=== PATIENT | female | born 1960 | race Caucasian/White ===

== ENCOUNTER 2023-07-17 17:49 | Emergency (ER) | payer BC, SELFPAY ==
[2023-07-17 18:03] VITALS: BP 177/103
[2023-07-17 18:26] LABS: % Basophils 0.3 % (0-2); % Eosinophils 2.4 % (0-6); % Immature Granulocytes 0.3 % (0-0.5); % Lymphocytes 37.4 % (20.5-51.1); % Monocytes 10.8 % (1.7-9.3); % Neutrophils 48.8 % (42.2-75.2); Absolute Eosinophils 0.1 10^3/uL (0-0.7); Absolute Lymphocytes 2.1 10^3/uL (1.2-3.4); Absolute Monocytes 0.6 10^3/uL (0.1-0.6); Absolute Neutrophils 2.8 10^3/uL (1.4-6.5); Hematocrit 39.8 % (37.0-47.0); Mean Corp Hgb Conc. 32.7 g/dL (33.0-37.0); Mean Corpuscular Hgb 29.8 pg (27.0-31.0); Mean Corpuscular Volume 91.3 fL (81.0-99.0); Mean Platelet Volume 10.1 fL (7.4-10.4); Nucleated Red Blood Cells % 0 %; Platelet Count 231 10^3/uL (130-400); Red Blood Cell Count 4.36 10^6/uL (4.20-5.40); Red Cell Dist. Width 12.8 % (11.5-14.5); White Blood Cell Count 5.7 10^3/uL (4.8-10.8)
[2023-07-17 18:45] LABS: ALT (SGPT) 29 U/L (0-35); AST (SGOT) 23 U/L (14-36); Albumin 3.8 g/dl (3.5-5.0); Alkaline Phosphatase 114 U/L (38-126); Blood Urea Nitrogen 13 mg/dl (7-17); Calcium 10.5 mg/dl (8.4-10.2); Carbon Dioxide 27 mmol/L (22-30); Chloride 107 mmol/L (98-107); Glucose 145 mg/dl (70-99); Potassium 4.4 mmol/L (3.5-5.1); Sodium 136 mmol/L (135-145); Total Bilirubin 0.4 mg/dl (0.2-1.3); Total Protein 6.8 g/dl (6.3-8.2); eGFR > 60.00
[2023-07-17 21:00] VITALS: BP 149/88
--- NOTE | 2023-07-17 21:17 | ED.GENMED ---
History of Present Illness
General
Chief Complaint: Abnormal Lab Value
Time Seen by Provider: 07/17/23 19:56
Travel History
Have you had any contact with someone who has COVID-19?: No
Do you have any symptoms of coronavirus? Fever > 100 degrees, chills, cough, shortness of breath, sore throat, loss of taste or smell, muscle aches, or headache?: No
History of Present Illness
History of Present Illness:
63-year-old female presents due to general fatigue. She went to urgent care prior to arrival where she was noted to have frequent PVCs on cardiac monitoring, subsequent labs showed hyperglycemia and hypercalcemia though she was sent to the
emergency department. She reports URI symptoms with sore throat and general malaise but denies any chest pain, palpitations, or shortness of breath.
Past History
Past History
ED Past Medical History: Seizures (activity) and Psychiatric (Anxiety, reports history of bipolar disorder.)
ED Past Surgical History: None
Social History
Tobacco: Non-smoker
Alcohol: Occasional
Personal:
Living: with family
Employment: Not employed
Family History
Family History: Negative CAD or Sudden
Review of Systems
Review of Systems
Allergies reviewed?: Yes
All Other Systems: ROS reviewed and negative except as documented in HPI and ROS
Phy Exam
Physical Exam
Physical Exam:
GEN: Well appearing, NAD, WDWN
HEENT: Oral mucosa moist, no scleral icterus
Cardiac: Regular rate and rhythm, no murmurs
Lung: No respiratory distress, no tachypnea, lungs clear to auscultation
MSK: No gross deformity or injuries
Skin: Good color, no pallor or jaundice, no rashes
Neuro: AO x3, moves all extremities freely
Psych: Calm, cooperative
Course
Orders/Labs/Results
Orders:
Orders
07/17/23 18:06
Electrocardiogram (*1) Urgent
Reason for Study: Chest Pain
07/17/23 18:07
EKG- Treatment ONCE
07/17/23 18:21
Complete Blood Count/With Diff Urgent
Comprehensive Metabolic Panel Urgent
Abnormal Lab Results
07/17/23
18:21
MCHC 32.7 L g/dL
(33.0-37.0)
Monocytes % 10.8 H %
(1.7-9.3)
Creatinine 0.5 L mg/dL
(0.6-1.0)
Glucose 145 H mg/dl
(70-99)
Calcium 10.5 H mg/dl
(8.4-10.2)
07/17/23 18:21
07/17/23 18:21
Vital Signs
Initial and Last Documented VS:
Initial Vital Signs
Temp Pulse Resp BP Pulse Ox
98.2 F 80 16 177/103 98
07/17/23 18:03 07/17/23 18:03 07/17/23 18:03 07/17/23 18:03 07/17/23 18:03
Last Documented Vital Signs
Temp Pulse Resp BP Pulse Ox
98.2 F 80 16 177/103 98
07/17/23 18:03 07/17/23 18:03 07/17/23 18:03 07/17/23 18:03 07/17/23 18:03
MDM/Problems Addressed
MDM/Problems Addressed:
63-year-old female presents due to lab abnormality seen in urgent care. She is mildly hyperglycemic and hypercalcemic however these are likely not significant. She does note increased usage of Tums recently which may be driving her hypercalcemia.
She had viral panels and strep test done in urgent care that were negative. Regards to her PVCs these are typically asymptomatic and likely not related to her symptoms. Patient monitored on telemetry for approximately 1 hour with no evidence for
cardiac dysrhythmia. Recommend outpatient primary care follow-up regarding her lab abnormalities
Comment
Comment:
EKG independently interpreted by me shows normal sinus rhythm with frequent PVCs, no ST changes concerning for ischemia
*Critical Care Note
Total Time (30-74mins, 75-104mins- exclusive of procedures): Not Applicable
ED Attending Note
-
Portions of this chart may have been created with voice recognition software.� Occasional wrong word or��sound alike� substitutions may have occurred due to the inherent limitations of voice recognition software.
Discharge Plan
Departure
Patient Disposition: Home (Routine Discharge)
Date of Disposition: 07/17/23
Time of Disposition: 21:18
Patient with high blood pressure during this ER visit?: No
Discharge Problem:
Asymptomatic PVCs, Hypercalcemia, Hyperglycemia
Instructions: BLOOD PRESSURE
Prescriptions:
No Action
clonazepam 0.5 MG tablet
1 tab PO HS PRN (Reason: anxiety)
cholecalciferol (vitamin D3) 2,000 UNIT tablet
2,000 unit PO DAILY
Referrals:
Laurie Serrano, DO [Family Provider] -
Activity Restrictions/Additional Instructions:
Please have your calcium and sugar rechecked by her primary care physician. Limit your Tums intake to lower your calcium
Interventions
Interventions:
*ED COVID-19 Vaccine History Last Done: 07/17/23 18:03
Discharge Date and Time
Print Language: WELSH
== END 2023-07-17 21:44 | disposition home or self-care (01) ==
LOC: EMR 17:49
PROVIDERS: EMERGENCY PHYSICIAN Emergency Medicine; FAMILY PHYSICIAN Family Medicine
DX: I49.3 Ventricular premature depolarization (principal); E83.52 Hypercalcemia; R73.9 Hyperglycemia, unspecified
CPT/HCPCS: 99284; 80053; 85025; 93005

== ENCOUNTER 2023-09-09 22:13 | Emergency (ER) | payer BC, SELFPAY ==
[2023-09-09 22:13] VITALS: BMI 34.1
[2023-09-09 22:16] VITALS: BP 144/108
--- NOTE | 2023-09-09 23:45 | ED.GENMED ---
History of Present Illness
General
Chief Complaint: Cardiac Symptoms
Source: patient
Exam Limitations: none
Time Seen by Provider: 09/09/23 23:07
Travel History
Have you had any contact with someone who has COVID-19?: No
Do you have any symptoms of coronavirus? Fever > 100 degrees, chills, cough, shortness of breath, sore throat, loss of taste or smell, muscle aches, or headache?: No
History of Present Illness
History of Present Illness:
63-year-old female who presents with left-sided pain in her upper chest. The patient states that she has had this pain for about a month since she had a mammogram where she was squeezing relatively hard on that side. The patient admits that since
then she has been having this discomfort comes daily. She was seen in urgent care in the past and did have an ER visit for the same. Patient states today the pain just seems a little different as it did radiate down her left arm and did briefly
radiate toward her jaw. There is no pain now. She again presented to urgent care and was sent here for further evaluation. Patient denies shortness of breath. No hemoptysis. No leg swelling.
Past History
Past History
ED Past Medical History: Seizures (activity) and Psychiatric (Anxiety, reports history of bipolar disorder.)
ED Past Surgical History: None
Social History
Tobacco: Non-smoker
Alcohol: Occasional
Personal:
Living: with family
Employment: Not employed
Family History
Family History: Negative CAD or Sudden
Phy Exam
Physical Exam
Physical Exam:
CONSTITUTIONAL Patient alert and oriented to person, place and time. Well-appearing. Vital signs reviewed.
HEAD atraumatic, normocephalic.
EYES eyelids normal to inspection, Extraocular muscles intact, Conjunctiva normal, Sclera normal.
NECK normal range of motion, Trachea midline, no jugular venous distention.
RESPIRATORY CHEST No respiratory distress noted, Chest expansion equal, Bilateral breath sounds clear.
CARDIOVASCULAR regular rate and rhythm, Heart sounds normal.
ABDOMEN abdomen nontender, Bowel sounds normal. No distention.
BACK normal inspection, no obvious deformities
UPPER EXTREMITY range of motion normal, Motor strength normal, no cyanosis, no edema.
LOWER EXTREMITY range of motion normal, Motor strength normal, no cyanosis, no edema.
NEURO Speech normal, No focal motor deficits, [place] coma scale 15, Memory normal, Cranial Nerves intact to screening exam.
SKIN skin warm, dry, and normal in color.
PSYCHIATRIC patient oriented to person place and time, Normal affect.
Course
Orders/Labs/Results
Orders:
Orders
09/09/23 22:19
ECG [Electrocardiogram (*1)] Urgent
Reason for Study: Chest Pain
09/09/23 22:20
EKG- Treatment ONCE
09/09/23 23:30
Cardiac Monitoring- Treatment ONCE
IV Insert/Care/Rem.- Treatment PRN
CR Chest - 2 Views Urgent
Comment:
Reason For Exam: respiratory distress
O2 Therapy [RESP] Urgent
Titrate/Wean O2 to maintain O2 sat greater than (%): 93
Special Instructions: TO MAINTAIN CONTINUOUS O2 SATS >/= 93%
Pulse Ox/cont/shift [RESP] Urgent
Quantity: 1
Special Instructions: continuous pulse ox
09/09/23 23:38
Complete Blood Count/With Diff Urgent
Comprehensive Metabolic Panel Urgent
NT-proBNP Routine
Troponin I Urgent
Abnormal Lab Results
09/09/23
23:38
RBC 4.18 L 10^6/uL
(4.20-5.40)
Hct 36.5 L %
(37.0-47.0)
Creatinine 1.1 H mg/dL
(0.6-1.0)
Glucose 125 H mg/dl
(70-99)
Calcium 11.2 H mg/dl
(8.4-10.2)
09/09/23 23:38
09/09/23 23:38
Vital Signs
Initial and Last Documented VS:
Initial Vital Signs
Temp Pulse Resp BP Pulse Ox
98.3 F 81 18 144/108 99
09/09/23 22:16 09/09/23 22:16 09/09/23 22:16 09/09/23 22:16 09/09/23 22:16
Last Documented Vital Signs
Temp Pulse Resp BP Pulse Ox
98.3 F 74 14 151/87 94
09/09/23 22:16 09/10/23 00:45 09/10/23 00:45 09/10/23 00:10 09/10/23 00:45
MDM/Problems Addressed
MDM/Problems Addressed:
Chest pain
*Radiology
Radiology exam reviewed: all reviewed NAD by ED Provider
*Pulse Oximetry
Patient hypoxic: no
*EKG
Interpreted by ED Provider?: Yes
Interpretation: normal
Rate: normal
Rhythm: sinus
[place]: normal axis
Ischemia: no ischemia
*Time Buyer Interpretation
Rate: normal
Interpretation: normal
Rhythm: sinus and PVC's
*Critical Care Note
Total Time (30-74mins, 75-104mins- exclusive of procedures): Not Applicable
Data Reviewed
Review of Other/Old Records Reveals: Labs (Prior labs reviewed)
Source: patient
Further Testing Considered But Not Given:
Consider D-dimer but no clinical suspicion for DVT or PE
Patient Management
Escalation/DeEscalation of care consider admission/obs:
Pain x 1 month. EKG and troponin negative. Will refer to cardiology for outpatient follow-up. Patient appears well.
ED Attending Note
-
Portions of this chart may have been created with voice recognition software.� Occasional wrong word or��sound alike� substitutions may have occurred due to the inherent limitations of voice recognition software.
Discharge Plan
Departure
Patient Disposition: Home (Routine Discharge)
Date of Disposition: 09/10/23
Time of Disposition: 00:52
Patient with high blood pressure during this ER visit?: Yes
Discharge Problem:
Chest pain
Instructions: Chest Pain DCA Follow Up, BLOOD PRESSURE
Prescriptions:
No Action
clonazepam 0.5 MG tablet
1 tab PO HS PRN (Reason: anxiety)
cholecalciferol (vitamin D3) 2,000 UNIT tablet
2,000 unit PO DAILY
Referrals:
UNKNOWN - PT DOES,NOT KNOW [Unknown Provider] -
Activity Restrictions/Additional Instructions:
Please take 81 mg of aspirin daily. Please avoid strenuous or exertional activity until cleared by cardiology. Cardiology has been notified and a follow up appointment has been requested. Someone will call you on the next business day to schedule a
follow up appointment.
Interventions
Interventions:
*Risk Screen - Suicide Last Done: 09/09/23 22:16
*General Assessment Last Done: 09/09/23 22:16
*Neglect/Abuse Screening Last Done: 09/09/23 22:16
ED- Fall Risk Assessment Last Done: 09/09/23 23:20
*ED COVID-19 Vaccine History Last Done: 09/09/23 23:20
ED- Pulmonary Assessment Last Done: 09/09/23 23:20
ED- Cardiac Assessment Last Done: 09/09/23 23:20
Discharge Date and Time
Print Language: LATVIAN
[2023-09-09 23:47] LABS: % Basophils 0.5 % (0-2); % Eosinophils 2.7 % (0-6); % Immature Granulocytes 0.3 % (0-0.5); % Lymphocytes 40.2 % (20.5-51.1); % Monocytes 9.2 % (1.7-9.3); % Neutrophils 47.1 % (42.2-75.2); Absolute Eosinophils 0.2 10^3/uL (0-0.7); Absolute Lymphocytes 2.7 10^3/uL (1.2-3.4); Absolute Monocytes 0.6 10^3/uL (0.1-0.6); Absolute Neutrophils 3.1 10^3/uL (1.4-6.5); Hematocrit 36.5 % (37.0-47.0); Hemoglobin 12.6 g/dL (12.0-16.0); Mean Corp Hgb Conc. 34.5 g/dL (33.0-37.0); Mean Corpuscular Hgb 30.1 pg (27.0-31.0); Mean Corpuscular Volume 87.3 fL (81.0-99.0); Mean Platelet Volume 10.2 fL (7.4-10.4); Nucleated Red Blood Cells % 0 %; Platelet Count 222 10^3/uL (130-400); Red Blood Cell Count 4.18 10^6/uL (4.20-5.40); White Blood Cell Count 6.6 10^3/uL (4.8-10.8)
[2023-09-10 00:03] LABS: ALT (SGPT) 29 U/L (0-35); AST (SGOT) 20 U/L (14-36); Albumin 3.6 g/dl (3.5-5.0); Alkaline Phosphatase 105 U/L (38-126); Blood Urea Nitrogen 15 mg/dl (7-17); Calcium 11.2 mg/dl (8.4-10.2); Carbon Dioxide 28 mmol/L (22-30); Chloride 107 mmol/L (98-107); Estimated Creatinine Clearance 60 ml/min; Glucose 125 mg/dl (70-99); Potassium 3.8 mmol/L (3.5-5.1); Sodium 140 mmol/L (135-145); Total Bilirubin 0.2 mg/dl (0.2-1.3); Total Protein 6.3 g/dl (6.3-8.2); eGFR 56.11
[2023-09-10 00:10] VITALS: BP 151/87
[2023-09-10 00:13] LABS: NT-proBNP 57.5 pg/ml; Troponin I < 0.012 ng/ml
[2023-09-10 01:10] VITALS: BP 148/84
== END 2023-09-10 01:10 | disposition home or self-care (01) ==
LOC: EMR 22:13
PROVIDERS: EMERGENCY PHYSICIAN Emergency Medicine; FAMILY PHYSICIAN Family Medicine
DX: R07.89 Other chest pain (principal); I49.3 Ventricular premature depolarization; G40.909 Epilepsy, unspecified, not intractable, without status epilepticus; F41.9 Anxiety disorder, unspecified; F31.9 Bipolar disorder, unspecified
CPT/HCPCS: 99283; 71046; 80053; 83880; 84484; 85025

== ENCOUNTER 2024-06-23 05:58 | Emergency (ER) | payer BC, SELFPAY ==
[2024-06-23 06:00] VITALS: BP 189/94
[2024-06-23 06:53] VITALS: BP 179/96
--- NOTE | 2024-06-23 07:33 | ED.GENMED ---
History of Present Illness
General
Chief Complaint: Numbness
Time Seen by Provider: 06/23/24 07:10
History of Present Illness
History of Present Illness:
64-year-old female with no significant past medical history presents to the emergency department for evaluation of intermittent left facial paresthesia and sharp pain to the left forehead maxillary face, the symptoms have been ongoing nearly daily
basis for at least 2 weeks. She went to urgent care yesterday where she had CBC and CMP that were unremarkable as well as negative COVID and flu; Was advised to seek ED care for further workup. She denies any obvious provoking or palliating
factors. No associated vision changes, hearing loss, vertigo, chest pain, or extremity paresthesias.
Past History
Past History
ED Past Medical History: Seizures (activity) and Psychiatric (Anxiety, reports history of bipolar disorder.)
ED Past Surgical History: None
Social History
Tobacco: Non-smoker
Alcohol: Occasional
Personal:
Living: with family
Employment: Not employed
Family History
Family History: Negative CAD or Sudden
Review of Systems
Review of Systems
Allergies reviewed?: Yes
All Other Systems: ROS reviewed and negative except as documented in HPI and ROS
Phy Exam
Physical Exam
Physical Exam:
GEN: Well appearing, NAD, WDWN
HEENT: Oral mucosa moist, no scleral icterus, no nasal congestion
Cardiac: Regular rate And rhythm, no murmurs
Lung: No respiratory distress, no tachypnea
MSK: No gross deformity or injuries
Skin: Good color, no pallor or jaundice, no rashes
Neuro: AO x3; CN II-XII grossly intact. BUE strength 5/5 in all [place], sensation intact and symmetric. BLE strength 5/5 in all hernd[place], sensation intact and symmetric
Psych: Calm, cooperative
Course
Vital Signs
Initial and Last Documented VS:
Initial Vital Signs
Temp Pulse Resp BP Pulse Ox
98.2 F 75 16 189/94 99
06/23/24 06:00 06/23/24 06:00 06/23/24 06:00 06/23/24 06:00 06/23/24 06:00
Last Documented Vital Signs
Temp Pulse Resp BP Pulse Ox
98.2 F 75 16 179/96 99
06/23/24 06:00 06/23/24 06:00 06/23/24 06:00 06/23/24 06:53 06/23/24 06:00
MDM/Problems Addressed
MDM/Problems Addressed:
Patient's neurologic exam is unremarkable. Her episodic sharp pain in the left side of the face is most closely consistent trigeminal neuralgia. Do not feel at this time that a CT of the head will provide any clinical benefit. Discussed potential
benefits of carbamazepine however the patient is little apprehensive given that the symptoms are not profoundly affecting her quality of life at this time. Will prescribe the medication and have her follow-up with her primary care physician to
discuss next steps
*Critical Care Note
Total Time (30-74mins, 75-104mins- exclusive of procedures): Not Applicable
ED Attending Note
-
Portions of this chart may have been created with voice recognition software.� Occasional wrong word or��sound alike� substitutions may have occurred due to the inherent limitations of voice recognition software.
Discharge Plan
Departure
Patient Disposition: Home (Routine Discharge)
Date of Disposition: 06/23/24
Time of Disposition: 07:33
Patient with high blood pressure during this ER visit?: Yes
Discharge Problem:
Facial pain
Instructions: Trigeminal neuralgia
Prescriptions:
New
carbamazepine 200 mg tablet
200 mg PO TID Qty: 90 0RF
Activity Restrictions/Additional Instructions:
As we discussed, your symptoms most closely parallel trigeminal neuralgia. We have prescribed you carbamazepine, which is typically very effective for this condition. However, if the symptoms are not impeding life, do not feel the need to start this
immediately. You may also discuss options with your primary doctor
If you begin the medication and your symptoms do not improve or worsen, please discuss a brain MRI with your primary doctor
Interventions
Interventions:
*Risk Screen - Suicide Last Done: 06/23/24 06:00
*General Assessment Last Done: 06/23/24 06:00
*Neglect/Abuse Screening Last Done: 06/23/24 06:00
*ED- Fall Risk Assessment Last Done: 06/23/24 06:53
*ED COVID-19 Vaccine History Last Done: 06/23/24 06:53
*Nursing Disposition Last Done: 06/23/24 08:00
ED- Neurological Assessment Last Done: 06/23/24 06:53
Discharge Date and Time
Discharge Date/Time: 06/23/24 08:01
Print Language: CITIZEN [place]
== END 2024-06-23 08:01 | disposition home or self-care (01) ==
LOC: EMR 05:58
PROVIDERS: EMERGENCY PHYSICIAN Emergency Medicine; FAMILY PHYSICIAN Family Medicine
DX: G50.0 Trigeminal neuralgia (principal); R56.9 Unspecified convulsions; F41.9 Anxiety disorder, unspecified; Z88.8 Allergy status to other drugs, medicaments and biological substances
CPT/HCPCS: 99283